=== PATIENT | male | born 1960 | race Caucasian/White ===

== ENCOUNTER → 2017-02-28 | Outpatient (CLI) | payer OTHER ==
[2017-02-28 19:54] LABS: CREATININE RANDOM URINE 51.4 mg/dl
[2017-02-28 20:35] LABS: ALBUMIN 4.2 gm/dl (3.4-5.0); ALT/SGPT 33 U/L (12-78); AST/SGOT 29 U/L (15-37); BLOOD UREA NITROGEN 14 mg/dl (7-18); CARBON DIOXIDE 30 mmol/L (21-32); CREATININE 0.89 mg/dl (0.60-1.40); GLUCOSE 205 mg/dl (70-99); POTASSIUM 4.3 mmol/L (3.5-5.1); SODIUM 131 mmol/L (136-145)
[2017-02-28 20:48] LABS: ALKALINE PHOSPHATASE 107 U/L (45-117); CHOLESTEROL 167 mg/dl (0-200); LDL CHOLESTEROL CALCULATED 90 mg/dl
[2017-03-01 06:14] LABS: HEMOGLOBIN A1C 9.6 % (4.5-5.6)
== END | disposition home or self-care (01) ==
LOC: C.LABMFLN 15:02
PROVIDERS: ATTEND Family Medicine
DX: J45.909 Unspecified asthma, uncomplicated (principal); F32.9 Major depressive disorder, single episode, unspecified; E11.9 Type 2 diabetes mellitus without complications; E78.00 Pure hypercholesterolemia, unspecified; I10 Essential (primary) hypertension

== ENCOUNTER → 2017-06-25 | Outpatient (CLI) | payer OTHER ==
[2017-06-25 18:30] LABS: ALT/SGPT 32 U/L (12-78); BLOOD UREA NITROGEN 15 mg/dl (7-18); CALCIUM 8.9 mg/dl (8.5-10.1); CARBON DIOXIDE 29 mmol/L (21-32); CHOLESTEROL 197 mg/dl (0-200); CREATININE 0.87 mg/dl (0.60-1.40); GLUCOSE 142 mg/dl (70-99); POTASSIUM 4.6 mmol/L (3.5-5.1); SODIUM 133 mmol/L (136-145)
[2017-06-25 18:33] LABS: LDL CHOLESTEROL (DIRECT) 139 mg/dl
[2017-06-26 06:22] LABS: HEMOGLOBIN A1C 10.4 % (4.5-5.6)
== END | disposition home or self-care (01) ==
LOC: C.LABMFLN 12:44
PROVIDERS: ATTEND Family Medicine
DX: E11.9 Type 2 diabetes mellitus without complications (principal); E78.00 Pure hypercholesterolemia, unspecified; Z00.00 Encounter for general adult medical examination without abnormal findings